=== PATIENT | male | born 1965 | race Caucasian/White ===

== ENCOUNTER → 2016-11-03 | Outpatient (CLI) | payer OTHER ==
--- NOTE | 2016-11-03 12:01 | PCVCIMAG ---
APPROVED REPORT Study performed: 11/03/2016 09:36:21 EXAM: Comprehensive 2D, Doppler, and color-flow Echocardiogram Patient Location: Echo lab Status: routine Other Information Study Quality: Good Indications Fatigue Chest Pain Hypertension/HDD 2D Dimensions IVSd: 10.58 (7-11mm)LVOT Diam: 25.92 (18-24mm) LVDd: 47.53 mm PWd: 11.86 (7-11mm)Ascending Ao: 35.11 (22-36mm) LVDs: 27.13 (25-40mm) Left Atrium: 36.95 (27-40mm) Aortic Root: 30.32 mm LV Single Plane 4CH: 52.18 % LV Single Plane 2CH: 53.02 %Ziegler's LVEF: 52.60 % Biplane EF: 52.2 % Volumes Left Atrial Volume (Systole) Single Plane 4CH: 70.93 mLSingle Plane 2CH: 66.95 mL LA ESV Index: 32.00 mL/m2 Aortic Valve AoV Peak Aden.: 1.21 m/s AO Peak Gr.: 5.83 mmHgLVOT Max P.41 mmHg LVOT Max V: 0.78 m/s MARY ALICE Vmax: 3.39 cm2 AI Vmax: 4.16 m/s AI Clayton: 1.51 m/s2 AI PHT: 800.80 ms Mitral Valve E/A Ratio: 1.2 MV Decel. Time: 182.39 ms MV E Max Aden.: 0.56 m/s MV A Aden.: 0.48 m/s IVRT: 93.43 ms TDI E/Lateral E': 8.00E/Medial E': 9.33 Medial E' Aden.: 0.06 m/s Lateral E' Aden.: 0.07 m/s Pulmonary Valve PV Peak Aden.: 0.84 m/sPV Peak Gr.: 2.84 mmHg Pulmonary Vein P Vein S: 0.41 m/sP Vein A: 0.24 m/s P Vein D: 0.30 m/sP Vein A Dur.: 110.7 msec P Vein S/D Ratio: 1.37 Tricuspid Valve TR Peak Aden.: 2.16 m/s TR Peak Gr.: 18.65 mmHg TV Vmax: 0.54 m/s Left Ventricle The left ventricle is normal size. There is normal LV segmental wall motion. Mild concentric left ventricular hypertrophy. Left ventricular systolic function is normal. The left ventricular ejection fraction is within the normal range. LVEF is 50-55%. The left ventricular diastolic function is normal. Right Ventricle The right ventricle is normal size. The right ventricular systolic function is normal. Atria The left atrium size is normal. The right atrium size is normal. Aortic Valve The aortic valve is normal in structure. Trivial regurgitation is present. There is no aortic valvular stenosis. Mitral Valve The mitral valve is normal in structure. There is trivial mitral valve regurgitation noted. No evidence of mitral valve stenosis. Tricuspid Valve The tricuspid valve is normal in structure. There is trivial tricuspid valve regurgitation noted. Pulmonic Valve The pulmonary valve is normal in structure. There is trivial pulmonic valvular regurgitation. Great Vessels The aortic root is normal in size. The ascending aorta is 3.5 cm with the arch at 3.2cm and the descending AO is 1.8cm IVC is normal in size and collapses with >50% inspiration Pericardium There is no pericardial effusion. There is no pleural effusion. <Conclusion> The left ventricle is normal size. LVEF is 50-55%. The aortic valve is normal in structure. Trivial regurgitation is present. The mitral valve is normal in structure. There is trivial mitral valve regurgitation noted. The tricuspid valve is normal in structure. There is trivial tricuspid valve regurgitation noted. The ascending aorta is 3.5 cm with the arch at 3.2cm and the descending AO is 1.8cm
== END | disposition home or self-care (01) ==
LOC: PCVCIMAG 09:28
PROVIDERS: ATTEND Internal Medicine
DX: I08.1 Rheumatic disorders of both mitral and tricuspid valves (principal); I10 Essential (primary) hypertension
CPT/HCPCS: 93306